=== PATIENT | female | born 1975 | race Two or more races ===

== ENCOUNTER 2023-01-19 05:06 | Inpatient (IN) | payer MEDICAID ==
[~2023-01-19] VITALS: Ht 162.6 cm; Wt 83.2 kg
[2023-01-19] MEDS ORDERED: ONDANSETRON ODT 4 MG TAB PO ONE (05:30)
[2023-01-19 06:22] LABS: Urine WBC None Seen /hpf (0 - 5)
[2023-01-19 06:32] LABS: Basophils # (auto) 0 10 ^3/uL (0-0.2); Basophils % (auto) 0.1 % (0.0-2.0); Eosinophils # (auto) 0.4 10 ^3/uL (0-0.8); Eosinophils % (auto) 3.7 % (0.0-7.0); Hematocrit 42.9 % (36.0-46.0); Hemoglobin 14.4 g/dL (12.2-16.2); Lymphocytes # (auto) 1.1 10 ^3/uL (0.4-5.4); Mean Corpuscular Hemoglobin 27.3 pg (28.0-32.0); Mean Corpuscular Hgb Conc. 33.5 g/dL (32.0-36.0); Mean Corpuscular Volume 81.4 fL (80.0-100.0); Monocytes # (auto) 0.3 10 ^3/uL (0-1.3); Monocytes % (auto) 2.5 % (0.0-12.0); Neutrophils # (auto) 9.3 10 ^3/uL (1.6-8.6); Neutrophils % (auto) 83.7 % (37.0-80.0); Nucleated Red Blood Cells % 0.3 %; Red Blood Cells 5.27 10^6/uL (4.0-5.20); Red Cell Distribution Width 15.1 % (11.8-14.3); White Blood Cell 11.2 10^3/uL (4.4-10.8)
[2023-01-19 06:35] LABS: Urine Bacteria NONE SEEN /hpf (None Seen); Urine Blood TRACE /uL (Negative); Urine Budding Yeast FEW /hpf (None Seen); Urine Mucus FEW (None Seen); Urine Specific Gravity 1.024 (1.001-1.035)
[2023-01-19] MEDS ORDERED: KETOROLAC TROMETH 30 MG/ML 1ML VIAL IV ONE (06:45)
[2023-01-19] MEDS ORDERED: METOCLOPRAMIDE HCL 5MG/ml INJ 2ml VIAL IV ONE (06:45)
[2023-01-19] MEDS ORDERED: SODIUM CHLORIDE 0.9% 1,000 ML IV ONE (06:45)
[2023-01-19 06:54] LABS: Albumin 3.8 g/dL (3.4-5.0); BUN/Creatinine Ratio 28.6 (10.0-20.0); Calcium 9.2 mg/dL (8.5-10.1)
[2023-01-19 06:57] LABS: Bilirubin, Total 0.4 mg/dL (0.2-1.0); Total Protein 8.1 g/dL (6.4-8.2)
[2023-01-19] MEDS ORDERED: cefTRIAXone 1GM/50ML D5W 50 ML IV ONE (07:30)
[2023-01-19] MEDS ORDERED: metroNIDAZOLE 500MG/100ML 100 ML IV ONE (07:30)
[2023-01-19] MEDS ORDERED: ONDANSETRON HCL 4 MG/2 ML VIAL IV PRN (11:15)
[2023-01-19] MEDS ORDERED: PANTOPRAZOLE 40 MG/10 ML VIAL INJ IV ONE (11:15)
[2023-01-19] MEDS: SODIUM CHLORIDE 0.9% 1,000 ML IV SCH ×2 (11:19→22:00)
[2023-01-19] MEDS ORDERED: GASTROGRAFIN 120 ML SOL ONE (11:31)
[2023-01-19 12:04] LABS: INR 1.03 (0.9-1.15)
[2023-01-19] MEDS: metroNIDAZOLE 500MG/100ML 100 ML IV SCH ×2 (15:16→22:00)
[2023-01-19 21:45] VITALS: BP 120/73
[2023-01-19 22:00] VITALS: BP 120/73
[2023-01-20 05:00] VITALS: BP 118/43
[2023-01-20 05:37] LABS: Hematocrit 33.8 % (36.0-46.0); Hemoglobin 11.6 g/dL (12.2-16.2); Mean Corpuscular Hemoglobin 27.3 pg (28.0-32.0); Mean Corpuscular Hgb Conc. 34.2 g/dL (32.0-36.0); Mean Corpuscular Volume 79.8 fL (80.0-100.0); Red Blood Cells 4.23 10^6/uL (4.0-5.20); Red Cell Distribution Width 15.2 % (11.8-14.3); White Blood Cell 8.2 10^3/uL (4.4-10.8)
[2023-01-20 05:47] LABS: Basophils % (manual) 0 (0.0-2.0); Blast Cells 0; Metamyelocytes % 0; Myelocytes % 0; Promyelocytes % 0; Reactive Lymphocytes 0
[2023-01-20] MEDS: metroNIDAZOLE 500MG/100ML 100 ML IV SCH ×3 (06:02→22:13)
[2023-01-20 06:08] LABS: Potassium 3.4 mmol/L (3.5-5.1)
[2023-01-20 06:21] LABS: BUN/Creatinine Ratio 33.3 (10.0-20.0); Bilirubin, Total 0.4 mg/dL (0.2-1.0); Calcium 8.1 mg/dL (8.5-10.1); Total Protein 5.9 g/dL (6.4-8.2)
[2023-01-20 07:33] LABS: Band Neutrophils % (manual) 10; Eosinophils % (manual) 15 (0-7); Lymphocytes % (manual) 19 (10.0-50.0); Monocytes % (manual) 7 (0-12)
[2023-01-20 08:00] VITALS: BP 105/67
[2023-01-20 08:50] VITALS: BP 105/67
[2023-01-20] MEDS: cefTRIAXone 1GM/50ML D5W 50 ML IV SCH (09:13)
[2023-01-20] MEDS: PANTOPRAZOLE 40 MG/10 ML VIAL INJ IV SCH (09:14)
[2023-01-20] MEDS: KETOROLAC TROMETH 30 MG/ML 1ML VIAL IV PRN ×2 (10:45→22:40)
[2023-01-20] MEDS ORDERED: POTASSIUM CHL 20 Meq TABLET PO ONE (11:45)
[2023-01-20 13:24] VITALS: BP 124/67
[2023-01-20] MEDS: SODIUM CHLORIDE 0.9% 1,000 ML IV SCH ×2 (13:50→17:15)
[2023-01-20 17:15] VITALS: BP 125/77
[2023-01-20 22:44] VITALS: BP 112/61
[2023-01-21] MEDS: SODIUM CHLORIDE 0.9% 1,000 ML IV SCH ×2 (05:21→13:15)
[2023-01-21] MEDS: metroNIDAZOLE 500MG/100ML 100 ML IV SCH (05:46)
[2023-01-21 06:22] LABS: Hematocrit 35.9 % (36.0-46.0); Mean Corpuscular Hemoglobin 27.8 pg (28.0-32.0); Mean Corpuscular Hgb Conc. 33.4 g/dL (32.0-36.0); Mean Corpuscular Volume 83.3 fL (80.0-100.0); Red Blood Cells 4.31 10^6/uL (4.0-5.20); Red Cell Distribution Width 15.1 % (11.8-14.3); White Blood Cell 7.6 10^3/uL (4.4-10.8)
[2023-01-21 06:27] LABS: Basophils % (manual) 0 (0.0-2.0); Blast Cells 0; Metamyelocytes % 0; Myelocytes % 0; Promyelocytes % 0; Reactive Lymphocytes 0
[2023-01-21 06:32] LABS: BUN/Creatinine Ratio 14.7 (10.0-20.0); Calcium 8.4 mg/dL (8.5-10.1); Potassium 3.6 mmol/L (3.5-5.1)
[2023-01-21 08:00] VITALS: BP 110/68
[2023-01-21 08:12] LABS: Band Neutrophils % (manual) 1; Eosinophils % (manual) 23 (0-7); Lymphocytes % (manual) 28 (10.0-50.0); Monocytes % (manual) 7 (0-12)
[2023-01-21] MEDS: cefTRIAXone 1GM/50ML D5W 50 ML IV SCH (08:46)
[2023-01-21] MEDS: PANTOPRAZOLE 40 MG/10 ML VIAL INJ IV SCH (08:50)
[2023-01-21 09:00] VITALS: BP 110/68
[2023-01-21] MEDS ORDERED: PANT40TA2 PO (11:20)
[2023-01-21 12:07] VITALS: BP 103/66
[2023-01-21 13:00] VITALS: BP 103/66
== END 2023-01-21 16:30 | disposition home or self-care (01) | DRG 249 ==
LOC: ER 05:06 → OVERFLOW 11:08 → EAST 21:10
PROVIDERS: ADMIT Nurse Practitioner Family; ATTEND Internal Medicine
DX: K52.9 Noninfective gastroenteritis and colitis, unspecified (principal); D72.829 Elevated white blood cell count, unspecified; E66.9 Obesity, unspecified; R73.9 Hyperglycemia, unspecified; Z20.822 Contact with and (suspected) exposure to COVID-19; E87.6 Hypokalemia; Z68.31 Body mass index [BMI] 31.0-31.9, adult; Z90.710 Acquired absence of both cervix and uterus; Z88.6 Allergy status to analgesic agent; Z83.3 Family history of diabetes mellitus; Z88.8 Allergy status to other drugs, medicaments and biological substances
CPT/HCPCS: 36415; 74176; 74250; 76705; 80048; 80053; 81001; 83036; 83690; 85007; 85025; 85027; 85610; 87040; 87426; 96361; 96365; 96368; 96375; C9113; G0378; J0696; J1885; J3490; Q0162

== ENCOUNTER 2024-09-16 09:08 | Emergency (ER) | payer MEDICAID ==
[~2024-09-16] VITALS: Ht 157.5 cm; Wt 67.0 kg
[~2024-09-16 09:08] MED LIST: PANT40TA2 PO
[2024-09-16] MEDS: methylPREDNISolone SOD SUCC 125 MG/2 ML VL IM ONE (09:50)
[2024-09-16] MEDS: KETOROLAC TROMETH 30 MG/ML 1ML VIAL IM ONE (09:50)
[2024-09-16 10:13] VITALS: BP 159/84; PULSE 108; RESP 18; TEMP 98.8; O2SAT 98
--- NOTE | 2024-09-16 12:12 | DVH ---
CLINICAL INDICATION: pain TECHNIQUE: XY L KNEE 3V XRAY Comparison: None FINDINGS/IMPRESSION: : There is no evidence of acute fracture or dislocation. Soft tissues are unremarkable.
[2024-09-16] MEDS ORDERED: METH4PAK PO (12:21)
--- NOTE | 2024-09-16 12:21 | ED.PDOC ---
Musculoskeletal HPI Comments 49-year-old female complaining of left knee pain x3 weeks. No injury. Patient states she was pain with bending and squatting down. Pain is only to the front of the knee. Nothing makes it better, movement makes it worse. Does report a history Chief Complaint: Lower Extremity Time Seen by MD: 09:17 Primary Care Provider: DAQUAN Basurto Notes: Nurses Notes Allergies: Coded Allergies: Acetaminophen (Verified Allergy, Intermediate, HIVES , 01/19/23) Home Meds Active Scripts Pantoprazole Sodium Sesquihydr (Protonix) 40 Mg Tab, 40 MG PO DAILY for 15 Days, #15 TAB Prov:ELOISA SHIN MD 01/21/23 Information Source: Patient Mode of Arrival: Ambulatory Location: Left Extremity Location: Knee Past Medical History PAST MEDICAL HISTORY: Denies Surgical History: Hysterectomy SUPPORT SERVICES SPECIALIST History: Denies all SUPPORT SERVICES SPECIALIST Hx Family History Family History: Reviewed,noncontributory to illness Social History Smoker: Non-Smoker Alcohol: Denies ETOH Use Drugs: Denies Drug Use Lives In: Home Constitutional: denies: chills, diaphoresis, fatigue, fever, malaise, sweats, weakness, others EENTM: denies: blurred vision, double vision, ear bleeding, ear discharge, ear drainage, ear pain, ear ringing, eye pain, eye redness, hearing loss, mouth pain, mouth swelling, nasal discharge, nose bleeding, nose congestion, nose pain, photophobia, tearing, throat pain, throat swelling, voice changes, others Respiratory: denies: cough, hemoptysis, orthopnea, SOB at rest, shortness of breath, SOB with excertion, stridor, wheezing, others Cardiovascular: denies: chest pain, dizzy spells, diaphoresis, Dyspnea on exertion, edema, irregular heart beat, left arm pain, lightheadedness, palpitations, PND, syncope, others Gastrointestinal: denies: abdomen distended, abdominal pain, blood streaked bowels, constipated, diarrhea, dysphagia, difficulty swallowing, hematemesis, melena, nausea, poor appetite, poor fluid intake, rectal bleeding, rectal pain, vomiting, others Genitourinary: denies: abnormal vagina bleeding, burning, dyspareunia, dysuria, flank pain, frequency, hematuria, incontinence, pain, , vagina discharge, urgency, others Neurological: denies: dizziness, fainting, headache, left sided numbness, left sided weakness, numbness, paresthesia, pre-existing deficit, right sided numbness, right sided weakness, seizure, speech problems, tingling, tremors, weakness, others Musculoskeletal: reports: joint pain; denies: back pain, gout, joint swelling, muscle pain, muscle stiffness, neck pain, others Integumetry: denies: bruises, change in color, change in hair/nails, dryness, laceration, lesions, lumps, rash, wounds, others Allergic/Immunocompromised: denies: Difficulty Healing, Frequent Infections, Hives, Itching, others Physical Exam General Appearance: No Apparent Distress, Normal HEENT: Normal ENT Inspection, Pharynx Normal, TMs Normal Neck: Full Range of Motion, Non-Tender, Normal, Normal Inspection Respiratory: Chest Non-Tender, Lungs Clear, No Accessory Muscle Use, No Respiratory Distress, Normal Breath Sounds Cardiovascular: No Edema, No JVD, No Murmur, No Gallop, Normal Peripheral P ulses, Regular Rate/Rhythm Breast Exam: Deferred Gastrointestinal: No Organomegaly, Non Tender, No Pulsatile Mass, Normal Bowel Sounds, Soft Genitalia: Deferred Pelvic: Deferred Rectal: Deferred Extremities: No calf tenderness, Normal capillary refill, Normal inspection, Normal range of motion, Non-tender, No pedal edema Musculoskeletal : Location: Left Extremity Location: Knee (Left anterior knee mild swelling/effusion noted. Full range of motion. Able to bear full weight. Negative Bonilla's negative valgus negative anterior drawer negative posterior drawer) Apperance: Normal Neurologic: Alert, log hooker II-XII nml as Tested, No Motor Deficits, Normal Affect, Normal Mood, No Sensory Deficits Cerebellar Function: Normal Reflexes: Normal Skin: Dry, Normal Color, Warm Lymphatic: No Adenopathy Was a procedure done? Was a procedure done?: No Differential Diagnosis EXT Differential Diagnosis: Fracture, Sprain, Dislocation, Gout X-Ray, Labs, Meds, VS Vital Signs Date Time Temp Pulse Resp B/P (MAP) Pulse Ox O2 Delivery O2 Flow Rate FiO2 09/16/24 10:13 98.8 108 18 159/84 (109) 98 98.8 09/16/24 10:13 108 18 98 09/16/24 09:20 98.8 108 18 159/84 (109) 98 Current Medications Medications (Trade) Dose Ordered Sig/Jovanna Route Start Time Stop Time Status Last Admin Methylprednisolone Sodium Succinate (Solu Medrol) 125 mg ONCE ONCE IM 09/16/24 09:30 09/16/24 09:31 DC 09/16/24 09:50 Ketorolac Tromethamine (Toradol Injection) 30 mg ONCE ONCE IM 09/16/24 09:30 09/16/24 09:31 DC 09/16/24 09:50 X-Ray, Labs, Meds, VS Comment Imaging: X-rays and CT scans were reviewed and interpreted by this provider, imaging shows no fractures and no pathological disease. Pending radiology review. Laboratory: Labs reviewed and interpreted by this provider. No significant abnormalities noted. Patient has prior medical visits reviewed. Med reconciliation performed Vital signs reviewed Time of 1ST Reevaluation: 12:21 Reevaluation 1ST: Improved Patient Education/Counseling: Diagnosis, Treatment, Need For Follow Up (Patient advised to follow-up in the emergency room in the next 24 to 48 hours if symptoms do not improve. Advised follow-up with PCP in the next 3 to 5 days. Patient verbalized understanding. ) Family Education/Counseling: Diagnosis Departure 1 Departure Time of Disposition: 12:20 Impression: Primary Impression: Arthralgia of left knee Disposition: 01 HOME / SELF CARE / HOMELESS Condition: Fair e-Prescriptions Methylprednisolone (Medrol Dosepak) 4 Mg [place] 4 MG PO UD, #21 TAB UAD Prov: JONAH MOON 09/16/24 Discharged With: Self Critical Care Note Critical Care Time?: No Stability Stability form required: No Heart Score Heart Score: Heart Score Response (Comments) Value History N/A 0 EKG N/A 0 Age N/A 0 Risk Factors N/A 0 Troponin N/A 0 Total 0 JONAH MOON Sep 16, 2024 12:21
== END 2024-09-16 12:27 | disposition home or self-care (01) ==
LOC: ER 09:08
DX: M25.562 Pain in left knee (principal); Z88.6 Allergy status to analgesic agent; Z90.49 Acquired absence of other specified parts of digestive tract
CPT/HCPCS: 73562; 96372; 99284; J1885; J2919